=== PATIENT | male | born 1975 | race American Indian/Alaskan Native ===

== ENCOUNTER 2021-06-19 14:24 | Emergency (ER) | payer MEDICAID ==
[~2021-06-19] VITALS: Ht 172.7 cm; Wt 125.5 kg
[2021-06-19 15:06] VITALS: BP 169/107
== END 2021-06-19 18:47 | disposition home or self-care (01) ==
LOC: ER 14:25
DX: R04.0 Epistaxis (principal)
CPT/HCPCS: 99282